=== PATIENT | male | born 1995 | race Caucasian/White ===

== ENCOUNTER 2020-01-25 11:59 | Emergency (ER) | payer SELFPAY ==
[~2020-01-25] VITALS: Ht 180.3 cm; Wt 99.8 kg
[2020-01-25 12:12] VITALS: BP 148/78
--- NOTE | 2020-01-25 12:25 | NUR ---
PATIENT TAKEN FOR XRAY VIA WHEELCHAIR
--- NOTE | 2020-01-25 13:00 | NUR ---
PT WHEELCHAIRED TO BED 09
[2020-01-25] MEDS ORDERED: KETOROLAC 60 MG/2 ML VIAL IM ONE (13:15)
--- NOTE | 2020-01-25 13:15 | NUR ---
RECEVIED A 24/M FROM [facility] FOR L LEG AND KNEE PAIN S/P MECHANICAL FALL. NO DEFORMITY. LIMITED ROM DUE TO PAIN. IN BED FOR MSE.
--- NOTE | 2020-01-25 13:50 | NUR ---
PLACED PT'S LEFT KNEE IN IMMOBILIZER, CHECKED PMSC'S BEFORE AND AFTER PLACEMENT WITHOUT INCIDENT, THEN GAVE PT CRUTCHES AND TAUGHT THEM HOW TO USE THEM 1 ON 1.
--- NOTE | 2020-01-25 13:55 | NUR ---
L KNEE IMMOBLIZER PLACED TO LEFT KNEE BY MIKIE DANIELLE. PMSC INTACT PRIOR TO IMMOBLIZER. PMSC INTACT POST IMMOBILIZER.
[2020-01-25 14:00] VITALS: BP 148/78
== END 2020-01-25 14:01 | disposition home or self-care (01) ==
LOC: MED 11:59
DX: S76.912A Strain of unspecified muscles, fascia and tendons at thigh level, left thigh, initial encounter (principal); S93.402A Sprain of unspecified ligament of left ankle, initial encounter; W10.8XXA Fall (on) (from) other stairs and steps, initial encounter; Y93.89 Activity, other specified; Y92.89 Other specified places as the place of occurrence of the external cause; Y99.8 Other external cause status
CPT/HCPCS: 29505; 73562; 73610; 96372; 99284; J1885